=== PATIENT | male | born 1965 | race Caucasian/White ===

== ENCOUNTER 2021-01-06 05:44 | Outpatient (CLI) | payer OTHER ==
[~2021-01-06] VITALS: Ht 190.5 cm; Wt 113.7 kg
[2021-01-06] MEDS ORDERED: SIMV40TA25 PO (13:57)
== END 2021-01-06 15:28 | disposition home or self-care (01) ==
LOC: PREOP 05:44
PROVIDERS: ATTEND Surgery
DX: Z01.818 Encounter for other preprocedural examination (principal)

== ENCOUNTER 2021-01-13 07:04 | Day surgery (SDC) | payer OTHER ==
[~2021-01-13] VITALS: Ht 190.5 cm; Wt 113.7 kg
[~2021-01-13 07:04] MED LIST: SIMV40TA25 PO
[2021-01-13 07:20] VITALS: BP 127/76
[2021-01-13] MEDS ORDERED: LACTATED RINGERS 1,000 ML IV STA (07:21)
[2021-01-13] MEDS ORDERED: LACTATED RINGERS 1,000 ML IV ONE (07:25)
--- NOTE | 2021-01-13 07:32 | Progress Note-Pre Operative ---
Pre-Operative Progress Note H&P Reviewed The H&P was reviewed, patient examined and no changes noted. Date Seen by Provider: Jan 13, 2021 Time Seen by Provider: 07:32 Date H&P Reviewed: Jan 13, 2021 Time H&P Reviewed: 07:32 Pre-Operative Diagnosis: +colSANDRO Sauer DO Jan 13, 2021 07:32
[2021-01-13] MEDS ORDERED: PROPOFOL INJECTION 50 ML IV ONE (07:37)
[2021-01-13] MEDS ORDERED: MIDAZOLAM 2 MG/2 ML (VERSED) VIAL ONE (07:37)
[2021-01-13 08:11] VITALS: BP 99/54
--- NOTE | 2021-01-13 08:14 | Progress Note-Post Operative ---
Post-Operative Progess Note Surgeon (s)/Director Occupational (s) Surgeon SANDRO HAMILTON DO Director Occupational: N/A Pre-Operative Diagnosis +cologuard Post-Operative Diagnosis Diverticulosis, AVM Procedure & Operative Findings Date of Procedure 01/13/21 Procedure Performed/Findings Colonoscopy, AVM, diverticulosis Anesthesia Type Per END STAP[facility]ER Estimated Blood Loss Estimated blood loss (mL): None Specimens/Packing Specimens Removed None SANDRO HAMILTON DO Jan 13, 2021 08:13
[2021-01-13 08:15] VITALS: BP 104/66
--- NOTE | 2021-01-13 08:17 | Discharge Inst-Simple/Standard ---
Discharge Inst-Standard Patient Instructions/Follow Up Plan of Care/Instructions/FU: 10 years Ajith Activity as Tolerated: Yes Discharge Diet: Regular Diet (high fiber) SANDRO HAMILTON DO Jan 13, 2021 08:17
[2021-01-13 08:25] VITALS: BP 104/66
[2021-01-13 08:35] VITALS: BP 109/95
--- NOTE | 2021-01-13 09:26 | Anesthesia-General Post-Op ---
MAC Patient Condition Mental Status/LOC: Same as Preop Cardiovascular: Satisfactory Nausea/Vomiting: Absent Respiratory: Satisfactory Pain: Controlled Complications: Absent Post Op Complications Complications None Follow Up Care/Instructions Patient Instructions None needed. Anesthesiology Discharge Order Discharge Order Patient was seen after the procedure and he was doing well, no complaints, stable vital signs, no apparent adverse anesthesia problems. CHERYL NUNEZ DO Jan 13, 2021 09:25
--- NOTE | 2021-01-13 10:38 | OPERATIVE REPORT ---
DATE OF SERVICE: 01/13/2021 PREOPERATIVE DIAGNOSIS: Positive Cologuard. POSTOPERATIVE DIAGNOSES: Diverticulosis, small AVM. SURGEON: Sandro Canseco DO ANESTHESIA: Per MDA. ESTIMATED BLOOD LOSS: None. COMPLICATIONS: None. PROCEDURE PERFORMED: Colonoscopy. INDICATIONS: The patient is a 55-year-old male with a positive Cologuard. He understands risks and benefits of procedure and wished to proceed with procedure. Consent was signed in the chart. DESCRIPTION OF PROCEDURE: The patient was taken to endoscopy suite, placed in left lateral recumbent position. Timeout was performed. Digital rectal exam was performed. No palpable polyps, masses or ulcerations. Scope was inserted in the rectum and advanced all the way to cecum with minimal difficulty. Prep was adequate. Scope was slowly retracted back. No polyps, masses or ulcerations in the cecum, ascending, transverse colon. In the descending colon, a small AVM present. Scope was then continued slowly retracted back noting diverticulosis a minimal amount. Scope was then continuously retracted back. No polyps, masses or ulcerations within the descending and sigmoid colon. Once in the rectum, scope was retroflexed noting no other pathology. Scope was returned to its normal position, slowly withdrawn until completely removed. The patient tolerated procedure well without any complications, taken to recovery room in stable condition. RECOMMENDATIONS: The patient will need repeat colonoscopy in 10 years. If any issues before that, he should be rescoped at that time. The patient recommended high fiber diet due to diverticulosis to help prevent further diverticula. Job ID: [id number] DocumentID: [id number] Dictated Date: 01/13/2021 08:19:47 Senior Receptionist Date: 01/13/2021 10:19:56 Dictated By: SANDRO CANSECO DO
== END 2021-01-13 08:40 | disposition home or self-care (01) ==
LOC: ENDO 07:04
PROVIDERS: ATTEND Surgery
DX: K57.90 Diverticulosis of intestine, part unspecified, without perforation or abscess without bleeding (principal); K55.20 Angiodysplasia of colon without hemorrhage; I10 Essential (primary) hypertension; E78.5 Hyperlipidemia, unspecified; Z79.899 Other long term (current) drug therapy

== ENCOUNTER → 2022-12-10 | Outpatient (CLI) | payer OTHER, SELFPAY ==
--- NOTE | 2022-12-10 14:16 | Diagnostic Imaging Report ---
INDICATION: Elevated cholesterol, coronary artery screening. CT coronary artery study performed with noncontrast images of the heart followed by calculation of cardiac calcium score. Dose reduction protocol was used. There is no prior study for comparison. FINDINGS: Raw data images demonstrate no overt adenopathy in the visualized portions of the mediastinum or riccardo. Visualized portions of the lungs show no focal infiltrates; the entirety of the lungs are not included on the study. There is no pleural fluid. There was no significant coronary artery calcification. Coronary calcium score was 0. IMPRESSION: No significant coronary artery calcification. Coronary calcium score was 0. Dictated by: Dictated on workstation # [id number]
== END ==
LOC: RAD 12:07
PROVIDERS: ATTEND Nurse Practitioner Family
DX: Z00.01 Encounter for general adult medical examination with abnormal findings (principal); Z76.0 Encounter for issue of repeat prescription; R73.03 Prediabetes; E78.01 Familial hypercholesterolemia; E66.8 Other obesity; J30.89 Other allergic rhinitis
CPT/HCPCS: 75571